=== PATIENT | female | born 1980 | race Caucasian/White ===

== ENCOUNTER 2016-10-03 08:35 | Observation (INO) | payer OTHER ==
[~2016-10-03 08:35] MED LIST: Buffered Lidocaine 1% SYRIN* 3 ML/SYR SYRINGE INTRADERM ONE; Phenazopyridine TAB* 100 MG PO ONE; ceFAZolin 2 GM PREMIX(*) 2 GM/50 ML BAG IVPB ONE
[2016-10-03] MEDS ORDERED: fentaNYL* 50 MCG/ML 2 ML VIAL (100 MCG VIAL) ONE ×4 (09:57→13:16)
[2016-10-03] MEDS ORDERED: Midazolam* 1 MG/ML 2 ML VIAL (2 MG) ONE ×2 (09:58→10:54)
[2016-10-03] MEDS ORDERED: Famotidine IV* 10 MG/ML 2 ML (20 mg) ONE (09:58)
[2016-10-03] MEDS ORDERED: Rocuronium* 10 MG/ML VIAL ONE (10:53)
[2016-10-03] MEDS ORDERED: HYDROmorphone* 1 MG/ML 1 ML SYR ONE ×2 (11:02→12:11)
[2016-10-03] MEDS ORDERED: HYDROcodone/ACETAMIN 5-325 MG* 1 TAB PO PRN (11:19)
[2016-10-03] MEDS ORDERED: Acetaminophen TAB* 325 MG PO PRN (11:19)
[2016-10-03] MEDS ORDERED: HYDROmorphone* 1 MG/ML 1 ML SYR IV PRN ×2 (11:19→13:00)
[2016-10-03] MEDS ORDERED: DiMENhydriNATE IV* 50 MG/ML VIAL IV PUSH PRN (11:19)
[2016-10-03] MEDS ORDERED: Scopolamine 1.5 mg* PATCH TRANSDERM PRN (11:19)
[2016-10-03] MEDS ORDERED: PROCHLORPERAZINE INJ 5 MG/ML 2 ML VIAL IV PRN (11:19)
[2016-10-03] MEDS ORDERED: Ondansetron INJ* 2 MG/ML VIAL IV PRN ×2 (11:19→13:00)
[2016-10-03] MEDS ORDERED: Ondansetron INJ* 2 MG/ML VIAL ONE (12:32)
[2016-10-03] MEDS ORDERED: Ketorolac INJ* 30 MG/ML 1 ML VIAL ONE (12:32)
[2016-10-03] MEDS: fentaNYL* 50 MCG/ML 2 ML VIAL (100 MCG VIAL) IV PRN ×2 (13:19→13:31)
[2016-10-03] MEDS ORDERED: HYDROcodone/ACETAMIN 5-325 MG* 1 TAB ONE (14:23)
[2016-10-03] MEDS: oxyCODONE/Acetamin 5/325 MG* TAB PO PRN ×2 (15:50→19:54)
[2016-10-03] MEDS: Ibuprofen TAB* 600 MG PO SCH ×2 (15:50→22:43)
[2016-10-03 18:16] LABS: Hematocrit 38 % (35-47); Hemoglobin 12.7 g/dl (12.0-16.0)
--- NOTE | 2016-10-03 21:58 | OP ---
DATE OF OPERATION: 10/03/16 - ROOM #333 DATE OF : 80 SURGEON: Jewel Ribera MD. AIRCRAFT CAPTAIN: Lizabeth Saenz MD. ANESTHESIOLOGIST: Dr. Chavez ANESTHESIA: General endotracheal tube. PRE-OP DIAGNOSES: Endometriosis and pelvic pain. POST-OP DIAGNOSES: Endometriosis and pelvic pain. OPERATIVE PROCEDURE: Total laparoscopic hysterectomy, bilateral salpingo- oophorectomy, lysis of adhesions, and cystoscopy. COMPLICATIONS: None. FINDINGS: On exam under anesthesia, on laparoscopy, the anterior bladder flap appeared normal. The cul-de-sac contained dense pelvic adhesions with both ovaries adherent to the ovarian fossa with endometriosis. There was scarring of the posterior cul-de-sac area. The appendix and liver surface were smooth. On cystoscopy bladder was normal. DESCRIPTION OF PROCEDURE: The patient identified, procedure identified as a total laparoscopic hysterectomy. The patient was taken to the operating room, and prepped and draped in the usual fashion in the dorsal lithotomy position under general anesthesia. A VCare uterine manipulator of the medium size was placed into the cervix. A small infraumbilical incision was made and the Veress needle inserted through this. The abdomen was insufflated through 15 mmHg. A Visiport visible trocar was used to enter the abdomen and then lateral trocars were placed approximately 8 cm lateral to the umbilicus at about the same level under direct visualization. The LigaSure was utilized to ligate the fallopian tube, infundibulopelvic ligament on the left side, brought down to the level of the round ligament. This was ligated using the LigaSure. A bladder flap was created via sharp and blunt dissection. The broad ligament was then ligated using the LigaSure. The cardinal ligament was then ligated using the LigaSure and the blood vessels were cauterized. The same procedure was carried down on the right starting with the infundibulopelvic and carried down to the round ligament. A bladder flap was created via sharp and blunt dissection. The VCare was manipulated until the uterine vessels could be well visualized and these were cauterized using the LigaSure and incised. Unipolar was set at 30, using a Valleylab mode 30/30 and the rim of the cuff was incised anteriorly and then brought out laterally using the unipolar cautery. The LigaSure was utilized partially to incise the uterosacral ligaments and these were incised until the uterus was totally excised from the vaginal cuff. Hemostasis was verified. The uterus and tubes and ovaries were all brought out through the vagina. The vaginal cuff was then closed using 0 Polysorb in a running fashion. Good hemostasis was verified. A cystoscopy was done at this point with both ureteral orifices noted and had good Pyridium coming through. The dome of the bladder was inspected, this was found to be intact. Cystoscope was terminated. Bourgeois was replaced. We looked again at the vaginal cuff internally. There was good hemostasis. Copious irrigation was utilized and suctioned out. All sponge and instrument counts were correct. Skin was closed using 4-0 Polysorb and skin glue and the patient returned to the recovery room in stable condition. [id number]/[facility] #: [id number] SHAHEED
[2016-10-04] MEDS: oxyCODONE/Acetamin 5/325 MG* TAB PO PRN ×2 (01:57→09:39)
[2016-10-04] MEDS: Ibuprofen TAB* 600 MG PO SCH (03:40)
[2016-10-04 07:42] VITALS: BP 121/66
[2016-10-06] MEDS ORDERED: Scopolomine PATCH Remove* 1 NOTE MISC PATCH OFF ONE (11:21)
== END 2016-10-04 09:51 | disposition home or self-care (01) ==
LOC: OR 08:35 → SSU 14:57
PROVIDERS: ADMIT Obstetrics & Gynecology; ATTEND Obstetrics & Gynecology
PROC: 0UTC4ZZ Resection of Cervix, Percutaneous Endoscopic Approach (ICD-10-PCS; 2016-10-03)
PROC: 0UT24ZZ Resection of Bilateral Ovaries, Percutaneous Endoscopic Approach (ICD-10-PCS; 2016-10-03)
PROC: 0UT74ZZ Resection of Bilateral Fallopian Tubes, Percutaneous Endoscopic Approach (ICD-10-PCS; 2016-10-03)
PROC: 0UT94ZZ Resection of Uterus, Percutaneous Endoscopic Approach (ICD-10-PCS; principal; 2016-10-03 10:00)
DX: N80.9 Endometriosis, unspecified (principal); R10.2 Pelvic and perineal pain; N94.6 Dysmenorrhea, unspecified; R87.613 High grade squamous intraepithelial lesion on cytologic smear of cervix (HGSIL)
CPT/HCPCS: 36415; 85014; 85018; 88307; A9270-GY; G0378; J0690; J1170; J1885; J2250; J2405; J3010

== ENCOUNTER 2017-09-01 13:16 | Emergency (ER) | payer OTHER ==
[2017-09-01 13:30] VITALS: BP 133/87
--- NOTE | 2017-09-01 14:25 | UC ---
Jack Hernandez Thomas, [facility] for [facility] on 09/01/17 at 1407 . FLU HPI - HPI Summary HPI Summary: In Room Note: The patient is a 36 year old female complaining of a frontal headache, chills, cough, and chest heaviness. She was diagnosed with the flu 2 weeks ago and was prescribed Tamiflu. Two weeks ago, the patient was lightheaded, had chills, and was fatigued. The patient was nauseous this morning. The patient denies fevers. She has recent influenza exposure at work. MD Note: Vital signs stable: temperature 99.4, blood pressure 133/87, pulse ox 98. Patient is not on any antihypertensive medication. Visit history: sore throat and sinusitis in the past, otherwise noncontributory. Bronchitis one year ago, irritable bowel, depression and anxiety. No allergies to antibiotics. Nurses Note: Patient states she had the flu B 2 weeks ago and was on Tamiflu. Today she woke up with a bad headache and chest congestion. She denies having a fever. She complains of chills. - History of Current Complaint Chief Complaint: UCGeneralIllness Stated Complaint: HEADACHE,CONGESTED Time Seen by Provider: 09/01/17 13:53 Hx Obtained From: Patient Hx Last Menstrual Period: tubal ligation Onset/Duration: Lasting Weeks - 2, Still Present Severity Initially: Moderate Pain Intensity: 5 Pain Scale Used: 0-10 Numeric Associated Signs & Symptoms: Positive: Cough, Headache. Negative: Fever, Myalgia Related Hx: Possible Flu/Infectious Exposure - Allergy/Home Medications Allergies/Adverse Reactions: Allergies Allergy/AdvReac Type Severity Reaction Status Date / Time No Known Allergies Allergy Verified 09/01/17 13:21 Home Medications: Home Medications Estradiol 1 mg PO DAILY 09/01/17 [History Confirmed 09/01/17] buPROPion HCl [Wellbutrin Sr] 300 mg PO DAILY 09/01/17 [History Confirmed ] PMH/Surg Hx/FS Hx/Imm Hx Other GI/ History: IBS Psychological History: Anxiety, Depression Other History Of: Negative For: HIV, Hepatitis B, Hepatitis C, Anticoagulant Therapy - Surgical History Surgical History: Yes Surgery Procedure, Year, and Place: gall bladder removal. hysterectomy- 2017 - Family History Known Family History: Positive: Cardiac Disease, Hypertension, Diabetes, Renal Disease - Unknown type of kidney disease but history of dialysis. - Social History Occupation: Employed Full-time Alcohol Use: Occasionally Alcohol Amount: 1 q 3 months Substance Use Type: None Smoking Status (MU): Never Smoked Tobacco Review of Systems Constitutional: Chills Respiratory: Cough, Other - Chest heaviness Gastrointestinal: Nausea Neurological: Headache Is Patient Immunocompromised?: No All Other Systems Reviewed And Are Negative: Yes Physical Exam - Summary Physical Exam Summary: Appearance: The patient is well-appearing, is in no pain distress, and is well- nourished. Eyes: Conjunctiva are clear. ENT: The hearing is grossly normal, the pharynx is normal, and the TMs are normal. There is no muffled or hoarse voice. Mild frontal sinus tenderness with palpation. There is nasal discharge. Neck: The neck is supple and there is no lymphadenopathy. Respiratory: The chest is nontender. The lungs are clear, there are normal breath sounds, and there is no respiratory distress. Cardiovascular: Heart is regular rate and rhythm. There is no murmur. Abdomen: The abdomen is soft and nontender. There is no organomegaly. Bowel sounds: present Musculoskeletal: Strength is intact. The patient moves all extremities. Neurological: The patient is alert. She has a frontal headache. Psychological: The patient displays age appropriate behavior Skin: Negative for rashes. Triage Information Reviewed: Yes Vital Signs: Initial Vital Signs Temp 99.4 F 09/01/17 13:25 Pulse 82 09/01/17 13:25 Resp 20 09/01/17 13:25 BP 133/87 09/01/17 13:25 Pulse Ox 98 09/01/17 13:25 Vital Signs Reviewed: Yes Flu Course/Dx - Course Course Of Treatment: The patient is a healthy 36 year old female with two week history of flu and subsequent cough and sinus tenderness. Physical examination does not reveal a pneumonia. She does have sinus tenderness and some nasal discharge. She also has a frequent cough as well as chest heaviness and discomfort with coughing. I will treat the sinusitis and possible atypical pneumonia with a Zithromax and prescribe Tessalon for the cough. Patient is urgent/emergent: BP elevated due to current condition w/o HTN in past medical history. Medications are reviewed this visit. - Differential Dx/Diagnosis Differential Diagnosis/HQI/PQRI: Bronchitis, Pneumonia, Other - Sinusitis Provider Diagnoses: 1. Sinusitis, 2. Bronchitis Discharge - Sign-Out/Discharge Documenting (check all that apply): Discharge - patient will be discharged home - Discharge Plan Condition: Stable Disposition: HOME Prescriptions: Azithromycin TAB* [Zithromax TAB*] 250 mg PO DAILY #6 tab MDD 2 Benzonatate CAP* [Tessalon CAP*] 100 mg PO TID #20 cap MDD 3 Patient Education Materials: Sinusitis (ED), Acute Bronchitis (ED) Forms: *Work Release Referrals: Laverne MADRID TANK PUMPER PANELBOARDMargo [Primary Care Provider] - Additional Instructions: WE DISCUSSED: 1. You have sinusitis. 2. You have bronchitis. See the attached information. 3. You have been started on Z vibha and Tessalon cough medicine for during the day. Take dextromethorphan in the evening. 4. See helpful hints below. 5. Your blood pressure reading today was 133/87, indicating PREHYPERTENSION. Follow-up with your primary care provider within 4 weeks for blood pressure readings and further evaluation. 6. COUGH, CONGESTION of CHEST, SINUSES OR EARS: The most important goal is to liquefy all the phlegm and get it out of your head and chest. Any illness causing cough, congestion, sore throat or sinus discomfort can be helped by doing the following: STAND UNDER SHOWER STREAM TO LOOSEN SECRETIONS. STAY AWAY FROM ANY SMOKE OR IRRITANTS. WHAT ELSE CAN HELP RELIEVE YOUR SYMPTOMS: GENERAL TYPES OF MEDICINE THAT MAY HELP DECONGESTANTS: helps relieve stuffiness and clears sinuses. Pseudoephedrine ( Sudafed or generic) is effective but you need to ask the pharmacist for it because it may be kept behind the counter. ANTIHISTAMINES: are NOT helpful in many colds and flus because they can worsen sore throat, dry eyes and mouth and cause drowsiness. Examples are diphenhydramine, doxylamine and chlorpheniramine. They can help dry you out if you are having profuse, clear drainage from the nose. EXPECTORANTS: helps thin mucous in the nose and chest, making it easier to clear the fluid out. Expectorants are in most combination cough/cold remedies and should be taken with plenty of water. Guaifenesin is the most common expectorant and it comes in pill or liquid form. Mucinex is an extended release form of guaifenesin. COUGH SUPPRESANT: reduces the body's cough reflex. Dextromethorphan is in over the counter products. Rarely, narcotics such as codeine or hydrocodone are used to suppress cough. SPECIFIC MEDICATIONS: Some of these may come in combination. In general, they all contain the same or similar active ingredients. The most important goal is to liquefy all the phlegm and get it out of your head and chest: The following medicines (you can buy them without prescription) may help: To help with cough: DEXTROMETHORPHAN (Vicks, Robitussin, Nyquil and other brands) To help break up phlegm: GUAIFENESIN (Mucinex, Robitussin, other brands) To help clear congestion: PSEUDOEPHEDRINE (Sudafed, Dimetapp, other brands) TRY TO CLEAR NOSE: AFRIN NASAL SPRAY: 2-3 SPRAYS PER NOSTRIL, TWICE A DAY FOR TWO DAYS ONLY. USEFUL WAYS TO FEEL BETTER WITHOUT MEDICATIONS: STAND UNDER SHOWER STREAM TO LOOSEN SECRETIONS. USE A VAPORIZOR. STAY AWAY FROM ANY SMOKE OR IRRITANTS. USE SALINE NASAL SPRAY TO KEEP FLOW OF MUCOUS FROM NOSTRILS AND SINUSES. CONSIDER USING NETI POT TO HELP WITH ALLERGIES AND CONGESTION IN THE NOSE. USE THIS THREE TIMES A WEEK. YOU CAN GET THIS AT [employer] IN [place] OR VARIOUS DRUGSTORES. DRINK LOTS OF WARM FLUIDS USEFUL HOME REMEDIES: WARM WATER GARGLES, WITH TSP OF SALT PER 8 OUNCES OF WATER, GARGLE FOR A FEW SECONDS AND SPIT OUT; GARGLE AND SPIT OUT; EVERY THREE HOURS. AND/OR: WARM WATER OR TEA, HONEY AND LEMON; 2-3 CUPS A DAY. FOR SORE THROAT: KEEP THROAT MOIST WITH LOZENGES; TEA AND HONEY. USE WARM WATER GARGLES 3-4 TIMES A DAY. FOLLOW UP: RE-CHECK IN 1O DAYS, NEEDED, IF YOU ARE NOT IMPROVING. RETURN HERE OR SEE YOUR PHYSICIAN. - Billing Disposition and Condition Condition: STABLE Disposition: HOME The documentation as recorded by the Jack cortés Thomas accurately reflects the service I personally performed and the decisions made by , Flo Hart MD.
== END 2017-09-01 14:30 | disposition home or self-care (01) ==
LOC: UCEAST 13:16
DX: J32.9 Chronic sinusitis, unspecified (principal); J40 Bronchitis, not specified as acute or chronic; K58.9 Irritable bowel syndrome, unspecified; F41.9 Anxiety disorder, unspecified; F32.9 Major depressive disorder, single episode, unspecified
CPT/HCPCS: 99212; G0463

== ENCOUNTER 2017-10-03 08:37 | Emergency (ER) | payer OTHER ==
[2017-10-03 08:51] VITALS: BP 123/75
--- NOTE | 2017-10-03 09:33 | UC ---
Cardiac HPI - HPI Summary HPI Summary: 36 yo WM h/o HTN c/o - History of Current Complaint Chief Complaint: UCEar Stated Complaint: EAR/JAW PAIN Time Seen by Provider: 10/03/17 09:08 Hx Obtained From: Patient Hx From Patient Unobtainable Due To: Other Hx Last Menstrual Period: states no period Pain Intensity: 8 - Allergy/Home Medications Allergies/Adverse Reactions: Allergies Allergy/AdvReac Type Severity Reaction Status Date / Time No Known Allergies Allergy Verified 10/03/17 08:44 PMH/Surg Hx/FS Hx/Imm Hx Other History Of: Negative For: HIV, Hepatitis B, Hepatitis C, Anticoagulant Therapy - Surgical History Surgical History: Yes Surgery Procedure, Year, and Place: gall bladder removal. hysterectomy- 2017 - Family History Known Family History: Positive: Cardiac Disease, Hypertension, Diabetes, Renal Disease - Unknown type of kidney disease but history of dialysis. - Social History Alcohol Use: Occasionally Alcohol Amount: 1 q 3 months Substance Use Type: None Smoking Status (MU): Never Smoked Tobacco Physical Exam Vital Signs: Initial Vital Signs Temp 36.8 C 10/03/17 08:45 Pulse 78 10/03/17 08:45 Resp 16 10/03/17 08:45 BP 123/75 10/03/17 08:45 Pulse Ox 99 10/03/17 08:45 Discharge - Discharge Plan Condition: Stable Disposition: HOME Prescriptions: Naproxen [Naproxen 500 mg tab] 500 mg PO BID 10 Days #20 tablet Patient Education Materials: Temporomandibular Disorder (ED) Referrals: Margo Pascal RN [Primary Care Provider] - Additional Instructions: follow up with maxillofacial surgeon if pain worsens in 1 week - Billing Disposition and Condition Condition: STABLE Disposition: HOME
--- NOTE | 2017-10-03 09:47 | UC ---
Ear Complaint HPI - HPI Summary HPI Summary: 36 yo WF c/o right ear pain associated with right TMJ pain x 2 days especially with eating, no f/c/or h/o swimming - History of Current Complaint Chief Complaint: UCEar Stated Complaint: EAR/JAW PAIN Time Seen by Provider: 10/03/17 09:08 Hx Obtained From: Patient Hx From Patient Unobtainable Due To: Other Hx Last Menstrual Period: states no period Pain Intensity: 8 Pain Scale Used: 0-10 Numeric - Allergies/Home Medications Allergies/Adverse Reactions: Allergies Allergy/AdvReac Type Severity Reaction Status Date / Time No Known Allergies Allergy Verified 10/03/17 08:44 PMH/Surg Hx/FS Hx/Imm Hx - Additional Past Medical History Additional PMH: none Previously Healthy: Yes Other History Of: Negative For: HIV, Hepatitis B, Hepatitis C, Anticoagulant Therapy - Surgical History Surgical History: Yes Surgery Procedure, Year, and Place: gall bladder removal. hysterectomy- 2017 - Family History Known Family History: Positive: Cardiac Disease, Hypertension, Diabetes, Renal Disease - Unknown type of kidney disease but history of dialysis. - Social History Alcohol Use: Occasionally Alcohol Amount: 1 q 3 months Substance Use Type: None Smoking Status (MU): Never Smoked Tobacco Review of Systems Constitutional: Negative Skin: Negative Eyes: Negative ENT: Ear Ache, Other - right TMJ pain Respiratory: Negative Cardiovascular: Negative Gastrointestinal: Negative Genitourinary: Negative Motor: Negative Neurovascular: Negative Musculoskeletal: Negative Neurological: Negative Psychological: Negative All Other Systems Reviewed And Are Negative: Yes Physical Exam Triage Information Reviewed: Yes Appearance: Well-Nourished, Pain Distress Vital Signs: Initial Vital Signs Temp 36.8 C 10/03/17 08:45 Pulse 78 10/03/17 08:45 Resp 16 10/03/17 08:45 BP 123/75 10/03/17 08:45 Pulse Ox 99 10/03/17 08:45 Vital Signs Reviewed: Yes Eye Exam: Normal ENT Exam: Other - cannot open mouth well due to pain ENT: Positive: Other - TTP on right tragus and over right TMJ Dental Exam: Normal Dental: Negative: Cervical Lymphadenopathy Neck exam: Normal Neck: Positive: 1 Respiratory Exam: Normal Cardiovascular Exam: Normal Abdominal Exam: Normal Musculoskeletal Exam: Normal Neurological Exam: Normal Psychological Exam: Normal Skin Exam: Normal Ear Complaint Course/Dx - Course Course Of Treatment: likely TMJ inflammation - Differential Dx/Diagnosis Provider Diagnoses: TMJ arthalgia Discharge - Sign-Out/Discharge Documenting (check all that apply): Discharge/Admit/Transfer - Discharge Plan Condition: Stable Disposition: HOME Prescriptions: Naproxen [Naproxen 500 mg tab] 500 mg PO BID 10 Days #20 tablet Naproxen [Naproxen 500 mg tab] 500 mg PO BID 10 Days #20 tablet Patient Education Materials: Temporomandibular Disorder (ED) Referrals: Margo Pascal RN [Primary Care Provider] - Additional Instructions: follow up with maxillofacial surgeon if pain worsens in 1 week - Billing Disposition and Condition Condition: STABLE Disposition: HOME
== END 2017-10-03 09:35 | disposition home or self-care (01) ==
LOC: UCEAST 08:37
DX: M26.621 Arthralgia of right temporomandibular joint (principal); H92.01 Otalgia, right ear
CPT/HCPCS: 99212; G0463

== ENCOUNTER 2018-01-09 11:44 | Emergency (ER) | payer OTHER ==
[2018-01-09 12:26] VITALS: BP 126/90
--- NOTE | 2018-01-09 13:08 | UC ---
Complaint Female HPI - HPI Summary HPI Summary: 37 female presents with urinary burning and frequency for the last 2 days. She tells me that she has had many UTIs in the past and that this feels the same. Some lower back aching started earlier today. Denies fever, chills, abdominal pain, n/v, hematuria, vaginal discharge. - History Of Current Complaint Chief Complaint: UCGU Stated Complaint: BURNING URINATION Time Seen by Provider: 01/09/18 13:08 Hx Obtained From: Patient Hx Last Menstrual Period: hyster Onset/Duration: Gradual Onset Severity Initially: Mild Severity Currently: Moderate Pain Intensity: 7 Pain Scale Used: 0-10 Numeric - Allergies/Home Medications Allergies/Adverse Reactions: Allergies Allergy/AdvReac Type Severity Reaction Status Date / Time No Known Allergies Allergy Verified 01/09/18 12:26 PMH/Surg Hx/FS Hx/Imm Hx - Additional Past Medical History Additional PMH: Anxiety Depression Previously Healthy: Yes Other History Of: Negative For: HIV, Hepatitis B, Hepatitis C, Anticoagulant Therapy - Surgical History Surgical History: Yes Surgery Procedure, Year, and Place: gall bladder removal. hysterectomy- 2017 - Family History Known Family History: Positive: Cardiac Disease, Hypertension, Diabetes, Renal Disease - Unknown type of kidney disease but history of dialysis. - Social History Occupation: Employed Full-time Lives: With Family Alcohol Use: Occasionally Alcohol Amount: 1 q 3 months Substance Use Type: None Smoking Status (MU): Never Smoked Tobacco Review of Systems Constitutional: Negative Skin: Negative Respiratory: Negative Cardiovascular: Negative Gastrointestinal: Negative Genitourinary: Dysuria, Frequency, Urgency Motor: Negative Musculoskeletal: Negative Neurological: Negative Psychological: Negative All Other Systems Reviewed And Are Negative: Yes Physical Exam - Summary Physical Exam Summary: GENERAL: NAD. WDWN. No pain distress. SKIN: No rashes, sores, lesions, or open wounds. NECK: Supple. Nontender. No lymphadenopathy. CHEST: CTAB. No r/r/w. No accessory muscle use. Breathing comfortably and in no distress. CV: RRR. Without m/r/g. Pulses intact. Brisk cap refill. ABDOMEN: Soft. NTTP. No distention or guarding. No CVA tenderness. Bowel sounds present NEURO: Alert. CN II-XII grossly intact. PSYCH: Age appropriate behavior. Triage Information Reviewed: Yes Vital Signs: Initial Vital Signs Temp 98 F 01/09/18 12:23 Pulse 92 01/09/18 12:23 Resp 17 01/09/18 12:23 BP 126/90 01/09/18 12:23 Pulse Ox 100 01/09/18 12:23 Laboratory Tests 01/09/18 13:11 POC Urine Color Raegan POC Urine Clarity Slightly cloudy POC Urine pH 6.5 POC Ur Specif [place] 1.020 POC Urine Protein Negative POC Ur Glucose (UA) Negative POC Urine Ketones Trace A POC Urine Blood Negative POC Urine Nitrite Negative POC Urine Bilirubin Negative POC Urine Urobilinogen 0.2 POC U Leukocyte Esteras Trace A Vital Signs Reviewed: Yes Complaint Female Dx - Course Course Of Treatment: UA with trace leuks. Will treat for UTI and send urine for culture. - Differential Dx/Diagnosis Provider Diagnoses: UTI Discharge - Sign-Out/Discharge Documenting (check all that apply): Patient Departure - Discharge Plan Condition: Stable Disposition: HOME Prescriptions: Nitrofurantoin Monohyd/M-Cryst [Macrobid 100 mg Capsule] 100 mg PO BID #10 cap Patient Education Materials: Urinary Tract Infection in Women (DC) Forms: *Work Release Referrals: Laverne MADRID BEESWAX BLEACHERMargo [Primary Care Provider] - Additional Instructions: If you develop a fever, shortness of breath, chest pain, new or worsening symptoms - please call your PCP or go to the ED. - Billing Disposition and Condition Condition: STABLE Disposition: Home
== END 2018-01-09 13:48 | disposition home or self-care (01) ==
LOC: UCEAST 11:44
DX: N39.0 Urinary tract infection, site not specified (principal); Z87.440 Personal history of urinary (tract) infections; Z82.49 Family history of ischemic heart disease and other diseases of the circulatory system; Z83.3 Family history of diabetes mellitus; Z84.1 Family history of disorders of kidney and ureter
CPT/HCPCS: 81003; 87086; 99212; G0463

== ENCOUNTER 2018-07-19 23:07 | Emergency (ER) | payer SELFPAY ==
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
[2018-07-19] MEDS ORDERED: Ketorolac INJ* 30 MG/ML 1 ML VIAL IM ONE (23:48)
[2018-07-19] MEDS ORDERED: oxyCODONE/Acetamin 5/325 MG* TAB PO ONE (23:49)
[2018-07-19] MEDS ORDERED: Cyclobenzaprine TAB* 10 MG PO ONE (23:49)
[2018-07-20 01:03] VITALS: BP 145/87
== END 2018-07-20 01:02 | disposition home or self-care (01) ==
LOC: ED 23:07
DX: S32.010A Wedge compression fracture of first lumbar vertebra, initial encounter for closed fracture (principal); X58.XXXA Exposure to other specified factors, initial encounter; Y93.23 Activity, snow (alpine) (downhill) skiing, snowboarding, sledding, tobogganing and snow tubing; Y92.9 Unspecified place or not applicable
CPT/HCPCS: 96372; 99282; A9270-GY; J1885

== ENCOUNTER 2018-07-22 17:25 | Emergency (ER) | payer SELFPAY ==
[2018-07-22 18:17] VITALS: BP 148/104
--- NOTE | 2018-07-22 18:34 | UC ---
Back Pain HPI - HPI Summary HPI Summary: Pt returns to clinic seeking medication for pain management. Pt was first seen here 07/19/18 for back injury and diagnosed with vetebral fracture. Pt was then seen in [facility] [place] and given RX for Percocet. Pt took Percocet and developed hives and "itchy rash". 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 has superficial scratch broderick across back. - History of Current Complaint Chief Complaint: UCBackPain Stated Complaint: back pain Time Seen by Provider: 07/22/18 18:21 Hx Obtained From: Patient Hx Last Menstrual Period: hyster ?: No Onset/Duration: Gradual Onset, Lasting Hours, Resolved Severity Initially: Moderate Severity Currently: Severe - back pain from fracture is severe Pain Intensity: 10 Back Pain: Is Diffuse - across back Character: Sharp, Dull, Aching Aggravating Factor(s): Movement, Lifting, Bending, Walking, Cough Alleviating Factor(s): Nothing Associated Signs And Symptoms: Positive: Negative - Risk Factors AAA Risk Factors: Negative TAD Risk Factors: Negative Cauda Equina Risk Factors: Negative Epidural Abscess Risk Factors: Negative - Allergies/Home Medications Allergies/Adverse Reactions: Allergies Allergy/AdvReac Type Severity Reaction Status Date / Time acetaminophen [From Percocet] Allergy Intermediate Itching Verified 07/22/18 18: 17 oxycodone [From Percocet] Allergy Intermediate Itching Verified 07/22/18 18:17 PMH/Surg Hx/FS Hx/Imm Hx Previously Healthy: Yes Other History Of: Negative For: HIV, Hepatitis B, Hepatitis C, Anticoagulant Therapy - Surgical History Surgical History: Yes Surgery Procedure, Year, and Place: gall bladder removal. hysterectomy- 2017 - Family History Known Family History: Positive: Cardiac Disease, Hypertension, Diabetes, Renal Disease - Unknown type of kidney disease but history of dialysis. - Social History Occupation: Unemployed Lives: With Family Alcohol Use: Occasionally Alcohol Amount: 1 q 3 months Substance Use Type: None Smoking Status (MU): Never Smoked Tobacco Have You Smoked in the Last Year: No Review of Systems All Other Systems Reviewed And Are Negative: Yes Constitutional: Positive: Negative Skin: Positive: Negative Eyes: Positive: Negative ENT: Positive: Negative Respiratory: Positive: Negative Cardiovascular: Positive: Negative Gastrointestinal: Positive: Negative Genitourinary: Positive: Negative Motor: Positive: Decreased ROM - back Neurovascular: Positive: Negative Musculoskeletal: Positive: Arthralgia, Decreased ROM, Myalgia Neurological: Positive: Negative Psychological: Positive: Negative Is Patient Immunocompromised?: No Physical Exam Triage Information Reviewed: Yes Appearance: Pain Distress Vital Signs: Initial Vital Signs Temp 99.3 F 07/22/18 18:12 Pulse 95 07/22/18 18:12 Resp 18 07/22/18 18:12 BP 148/104 07/22/18 18:12 Pulse Ox 98 07/22/18 18:12 Vital Signs Reviewed: Yes Eye Exam: Normal ENT Exam: Normal Dental Exam: Normal Respiratory: Positive: No respiratory distress Musculoskeletal Exam: Normal Musculoskeletal: Positive: ROM Limited @ - pain with ROM Neurological Exam: Normal Psychological Exam: Normal Skin Exam: Normal Back Pain Course/Dx - Differential Dx/Diagnosis Differential Diagnosis/HQI/PQRI: Fracture Provider Diagnosis: Encounter for pain management, Back pain Discharge - Sign-Out/Discharge Documenting (check all that apply): Patient Departure All imaging exams completed and their final reports reviewed: No Studies - Discharge Plan Condition: Stable Disposition: HOME Prescriptions: traMADol TAB* [Ultram*] 50 mg PO Q6HR PRN #8 tab MDD 4 PRN Reason: Pain Patient Education Materials: Vertebral Compression Fracture (ED) Referrals: No Primary Care Phys,NOPCP [Primary Care Provider] - - Billing Disposition and Condition Condition: STABLE Disposition: Home
== END 2018-07-22 18:45 | disposition home or self-care (01) ==
LOC: UCEAST 17:25
DX: M54.9 Dorsalgia, unspecified (principal); Z88.8 Allergy status to other drugs, medicaments and biological substances; Z88.5 Allergy status to narcotic agent
CPT/HCPCS: 99212; G0463

== ENCOUNTER 2018-07-25 04:17 | Emergency (ER) | payer SELFPAY ==
[2018-07-25] MEDS ORDERED: Benzocaine/Butamben/Tetracain* SPRAY TOPICAL ONE (04:31)
--- NOTE | 2018-07-25 04:57 | ED ---
Throat Pain/Nasal Congestion - HPI Summary HPI Summary: A 37 y/o female presents to [facility] with a chief complaint of thinking a peanut is stuck in her throat since 07/23/18. The patient claims that she was eating trail mix. While eating she did not notice anything unusual. The patient reports trouble sleeping, but she is able to eat, drink and breathe OK and denies difficulty swallowing but claims that it feels weird to swallow She describes her pain as feeling like she has a swollen tonsil. At triage she rated her pain a 0/10 in severity. - History of Current Complaint Chief Complaint: EDForeignBodyEsophag Time Seen by Provider: 07/25/18 04:26 Hx Obtained From: Patient Onset/Duration: Sudden Onset, Lasting Days, Still Present Severity: Mild Associated Signs And Symptoms: Positive: Negative - SOB. Negative: Dysphagia - Allergies/Home Medications Allergies/Adverse Reactions: Allergies Allergy/AdvReac Type Severity Reaction Status Date / Time acetaminophen [From Percocet] Allergy Intermediate Itching Verified 07/22/18 18: 17 oxycodone [From Percocet] Allergy Intermediate Itching Verified 07/22/18 18:17 PMH/Surg Hx/FS Hx/Imm Hx Endocrine/Hematology History: Reports: Hx Anemia - borderline Denies: Hx Anticoagulant Therapy, Hx Diabetes, Hx Thyroid Disease Cardiovascular History: Denies: Hx Congestive Heart Failure, Hx Deep Vein Thrombosis, Hx Hypertension , Hx Myocardial Infarction, Hx Pacemaker/ICD, Other Cardiovascular Problems/ Disorders Respiratory History: Denies: Hx Asthma, Hx Chronic Obstructive Pulmonary Disease (COPD), Hx Lung Cancer, Other Respiratory Problems/Disorders GI History: Reports: Hx Irritable Bowel Denies: Hx Gall Bladder Disease, Hx Gastrointestinal Bleed, Hx Ulcer, Hx Urosepsis History: Denies: Hx Kidney Stones, Hx Renal Disease Musculoskeletal History: Denies: Other Musculoskeletal History Sensory History: Denies: Hx Contacts or Glasses, Hx Hearing Aid Opthamlomology History: Denies: Hx Contacts or Glasses Neurological History: Denies: Hx Dementia, Hx Migraine, Hx Seizures, Hx Transient Ischemic Attacks (TIA), Other Neuro Impairments/Disorders Psychiatric History: Reports: Hx Anxiety, Hx Depression Denies: Hx Schizophrenia, Hx Bipolar Disorder - Surgical History Surgery Procedure, Year, and Place: gall bladder removal. hysterectomy- 2017 Hx Anesthesia Reactions: No Infectious Disease History: No Infectious Disease History: Denies: Hx Clostridium Difficile, Hx Hepatitis, Hx Human Immunodeficiency Virus (HIV), Hx of Known/Suspected MRSA, Hx Shingles, Hx Tuberculosis, History Other Infectious Disease, Traveled Outside the [place] in Last 30 Days - Family History Known Family History: Positive: Cardiac Disease, Hypertension, Diabetes, Renal Disease - Unknown type of kidney disease but history of dialysis. - Social History Alcohol Use: Occasionally Alcohol Amount: 1 q 3 months Substance Use Type: Reports: None Smoking Status (MU): Never Smoked Tobacco Have You Smoked in the Last Year: No Review of Systems Negative: Fever ENT: Negative - difficulty eating/drinking, Other - Positive: feeling "weird to swallow" Negative: Shortness Of Breath All Other Systems Reviewed And Are Negative: Yes Physical Exam - Summary Physical Exam Summary: Appearance: Well-appearing, Well-nourished, lying in bed comfortably Skin: Warm, dry, no obvious rash Eyes: sclera anicteric, no conjunctival pallor ENT: mucous membranes moist, pharynx appears normal Neck: Supple, nontender Respiratory: Clear to auscultation, no signs of respiratory distress Cardiovascular: Normal S1, S2. No murmurs. Normal distal pulses in tibial and radial bilaterally. Abdomen: Soft, nontender, normal active bowel sounds present Musculoskeletal: Normal, Strength/ROM Intact Neurological: A&Ox3, awake and alert, mentation is normal, speech is fluent and appropriate Psychiatric: affect is normal, does not appear anxious or depressed Triage Information Reviewed: Yes Vital Signs On Initial Exam: Initial Vitals Temp Pulse Resp BP Pulse Ox 98.3 F 95 16 156/101 97 07/25/18 04:21 07/25/18 04:21 07/25/18 04:21 07/25/18 04:21 07/25/18 04:21 Vital Signs Reviewed: Yes Diagnostics - Vital Signs Vital Signs Temp Pulse Resp BP Pulse Ox 07/25/18 04:21 98.3 F 95 16 156/101 97 - Laboratory Lab Statement: Any lab studies that have been ordered have been reviewed, and results considered in the medical decision making process. EENT Course/Dx - Course Course Of Treatment: A 37 y/o female presents to [facility] with a chief complaint of thinking a peanut is stuck in her throat since 07/23/18. The patient claims that she was eating trail mix. While eating she did not notice anything unusual. The patient reports trouble sleeping, but she is able to eat, drink and breathe OK and denies difficulty swallowing but claims that it feels weird to swallow She describes her pain as feeling like she has a swollen tonsil. At triage she rated her pain a 0/10 in severity. The physical exam was unremarkable. Attempted to visualize hypopharynx with scope but could not visualize it. In the ED course the patient was given cetacaine spray. The patient will be discharged home and advised to follow up with an ENT. She is agreeable with this plan. - Diagnoses Provider Diagnoses: Foreign body sensation in throat Discharge - Sign-Out/Discharge Documenting (check all that apply): Patient Departure - DC Patient Received Moderate/Deep Sedation with Procedure: No - Discharge Plan Condition: Good Disposition: HOME Referrals: [facility] [place]] Barry Maki MD [Medical Doctor] - Additional Instructions: I would advise contacting an ENT doctor on Friday if this foreign body sensation is still there. They have much more sophisticated scopes and expertise in this part of your anatomy and should be able to do a much more complete exam of the area than we can do here. If it is an area of irritation from something you ate it should resolve in less than a weeks time. At this point I would not place any restrictions on your diet. - Billing Disposition and Condition Condition: GOOD Disposition: Home - Attestation Statements Document Initiated by Brook: Yes Documenting Scribe: Hans Walton Provider For Whom Brook is Documenting (Include Credential): Dileep Stiles MD Scribe Attestation: I, Hans Walton, scribed for Dileep Stiles MD on 07/27/18 at 1602. Scribe Documentation Reviewed: Yes Provider Attestation: The documentation as recorded by the Hans cortés accurately reflects the service I personally performed and the decisions made by me, Dileep Stiles MD Status of Scribtanya Document: Viewed
[2018-07-25] MEDS ORDERED: Benzocaine/Butamben/Tetracain (CETACAINE - SINGLE USE) 5 gm TOPICAL ONE (05:00)
[2018-07-25 05:04] VITALS: BP 135/80
== END 2018-07-25 05:02 | disposition home or self-care (01) ==
LOC: ED 04:17
DX: R09.89 Other specified symptoms and signs involving the circulatory and respiratory systems (principal); Z88.6 Allergy status to analgesic agent; Z88.5 Allergy status to narcotic agent
CPT/HCPCS: 99282; A9270-GY

== ENCOUNTER 2018-08-14 07:02 | Emergency (ER) | payer SELFPAY ==
--- OUTSIDE RECORDS SUMMARY | 2018-08-14 07:11 | XMS REPORT | Continuity of Care Document ---
:1980 External Reference #:[id number] Author Name Stefan Hahn Care Team Providers Name Role Phone Patient's Choice Primary Care Physician Unavailable Payers Description No Information Available Advance Directives Description No Information Available Problems Description No Information Family History Date Family Member(s) Observation Comments General Diabetes General Hypertension General Stroke General Cancer Social History Type Date Description Comments Sex Unknown Marital Status Single Lives With Daughter Occupation Unemployed ETOH Use Occasionally consumes alcohol Tobacco Use Start: Unknown Patient has never smoked Recreational Drug Use Denies Drug Use Smoking Status Reviewed: 07/31/18 Patient has never smoked Exercise Type/Frequency Exercises regularly Allergies, Adverse Reactions, Alerts Date Description Reaction Status Severity Comments 07/23/2018 Acetaminophen / Oxycodone Active itches Medications Medication Date Status Form Strength Qnty SIG Indications Ordering Provider Tramadol HCL Active Tablets 50mg 20tabs take 1 Eduardo F 00 tablet by MD Peterson mouth every 6 hours if needed for pain Sertraline HCL Active Tablets 100mg Unknown 00 Motrin Ib Active Unknown 00 Immunizations Description No Information Available Vital Signs Date Vital Result Comment 07/31/2018 11:13am Height 69 inches 5'9" Weight 271.00 lb BP Systolic Sitting 110 mmHg BP Diastolic Sitting 70 mmHg Pain Level 4 BMI (Body Mass Index) 40.0 kg/m2 07/24/2018 3:37pm Height 69 inches 5'9" Weight 271.00 lb BP Systolic Sitting 132 mmHg BP Diastolic Sitting 84 mmHg Pain Level 10 BMI (Body Mass Index) 40.0 kg/m2 07/23/2018 3:52pm Height 69 inches 5'9" Weight 271.00 lb Heart Rate 68 /min BP Systolic 138 mmHg BP Diastolic 84 mmHg Body Temperature 98.7 F Pain Level 3 BMI (Body Mass Index) 40.0 kg/m2 Results Description No Information Available Procedures Description No Information Available Encounters Type Date Location Provider Dx Diagnosis Office Visit 07/23/2018 [facility] Eduardo Goldman [id number] Contusion [facility] Winkler MD lower leg, initial encounter Plan of Treatment Future Appointment(s):08/26/2018 3:30 pm - HERMES Oneil[facility]08/24/2018 3:15 pm - Eduardo Winkler MD at [facility]07/31/2018 - VALENTÍN Oneil-[id number] Wedge comprsn fx first lum vert, subs for fx w routn healFollow up:4 weeks
[2018-08-14 07:31] VITALS: BP 147/72
== END 2018-08-14 08:25 | disposition left against medical advice (07) ==
LOC: UCEAST 07:02
DX: Z53.21 Procedure and treatment not carried out due to patient leaving prior to being seen by health care provider (principal)